=== PATIENT | male | born 1950 | race Caucasian/White ===

== ENCOUNTER 2020-11-05 09:27 | Outpatient (CLI) | payer MEDICARE, OTHER | END 2020-11-05 23:59 | disposition home or self-care (01) | LOC: WOUND 09:27 | PROVIDERS: ATTEND Nurse Practitioner Family | DX: S91.105A Unspecified open wound of left lesser toe(s) without damage to nail, initial encounter (principal); L03.032 Cellulitis of left toe; L98.496 Non-pressure chronic ulcer of skin of other sites with bone involvement without evidence of necrosis; M86.572 Other chronic hematogenous osteomyelitis, left ankle and foot; L84 Corns and callosities; E03.9 Hypothyroidism, unspecified; M10.9 Gout, unspecified; X58.XXXA Exposure to other specified factors, initial encounter; Y93.89 Activity, other specified; Y92.89 Other specified places as the place of occurrence of the external cause; Y99.8 Other external cause status | CPT/HCPCS: 87070; 87077; 87186; 87205; 97597; G0463 ==

== ENCOUNTER 2020-11-08 12:19 | Outpatient (CLI) | payer MEDICARE, OTHER ==
[2020-11-08] MEDS ORDERED: GADOTERATE 10 MMOL/20ML SYR ONE (13:58)
== END 2020-11-08 23:59 | disposition home or self-care (01) ==
LOC: RAD 12:19
PROVIDERS: ATTEND Nurse Practitioner Family
DX: S92.322A Displaced fracture of second metatarsal bone, left foot, initial encounter for closed fracture (principal); L03.012 Cellulitis of left finger; L97.814 Non-pressure chronic ulcer of other part of right lower leg with necrosis of bone; X58.XXXA Exposure to other specified factors, initial encounter; Y93.89 Activity, other specified; Y92.89 Other specified places as the place of occurrence of the external cause; Y99.8 Other external cause status
CPT/HCPCS: 73720; A9575

== ENCOUNTER → 2020-11-12 | Outpatient (CLI) | payer MEDICARE, OTHER | END | disposition home or self-care (01) | LOC: WOUND 09:49 | PROVIDERS: ATTEND Nurse Practitioner Family | DX: S91.105D Unspecified open wound of left lesser toe(s) without damage to nail, subsequent encounter (principal); L03.032 Cellulitis of left toe; L98.496 Non-pressure chronic ulcer of skin of other sites with bone involvement without evidence of necrosis; M86.572 Other chronic hematogenous osteomyelitis, left ankle and foot; L84 Corns and callosities; E03.9 Hypothyroidism, unspecified; M10.9 Gout, unspecified; X58.XXXD Exposure to other specified factors, subsequent encounter | CPT/HCPCS: 97597 ==

== ENCOUNTER 2020-11-19 09:12 | Outpatient (CLI) | payer MEDICARE, OTHER | END 2020-11-19 23:59 | disposition home or self-care (01) | LOC: WOUND 09:12 | PROVIDERS: ATTEND Nurse Practitioner Family | DX: S91.105D Unspecified open wound of left lesser toe(s) without damage to nail, subsequent encounter (principal); L98.496 Non-pressure chronic ulcer of skin of other sites with bone involvement without evidence of necrosis; L03.032 Cellulitis of left toe; M86.572 Other chronic hematogenous osteomyelitis, left ankle and foot; L84 Corns and callosities; E03.9 Hypothyroidism, unspecified; M10.9 Gout, unspecified; X58.XXXD Exposure to other specified factors, subsequent encounter | CPT/HCPCS: G0463 ==

== ENCOUNTER → 2020-11-26 | Outpatient (CLI) | payer MEDICARE, OTHER | END | disposition home or self-care (01) | LOC: WOUND 08:48 | PROVIDERS: ATTEND Nurse Practitioner Family | DX: S91.105D Unspecified open wound of left lesser toe(s) without damage to nail, subsequent encounter (principal); L03.032 Cellulitis of left toe; L98.496 Non-pressure chronic ulcer of skin of other sites with bone involvement without evidence of necrosis; M86.572 Other chronic hematogenous osteomyelitis, left ankle and foot; L84 Corns and callosities; E03.9 Hypothyroidism, unspecified; M10.9 Gout, unspecified; X58.XXXD Exposure to other specified factors, subsequent encounter | CPT/HCPCS: G0463 ==

== ENCOUNTER → 2020-12-03 | Outpatient (CLI) | payer MEDICARE, OTHER | END | disposition home or self-care (01) | LOC: WOUND 08:35 | PROVIDERS: ATTEND Nurse Practitioner Family | DX: S91.105D Unspecified open wound of left lesser toe(s) without damage to nail, subsequent encounter (principal); L98.496 Non-pressure chronic ulcer of skin of other sites with bone involvement without evidence of necrosis; L03.032 Cellulitis of left toe; M86.572 Other chronic hematogenous osteomyelitis, left ankle and foot; L84 Corns and callosities; E03.9 Hypothyroidism, unspecified; M10.9 Gout, unspecified; X58.XXXD Exposure to other specified factors, subsequent encounter | CPT/HCPCS: 97597 ==

== ENCOUNTER → 2020-12-05 | Outpatient (CLI) | payer MEDICARE, OTHER | END | disposition home or self-care (01) | LOC: CVU 12:32 | PROVIDERS: ATTEND Nurse Practitioner Family | DX: L97.814 Non-pressure chronic ulcer of other part of right lower leg with necrosis of bone (principal); L98.496 Non-pressure chronic ulcer of skin of other sites with bone involvement without evidence of necrosis | CPT/HCPCS: 93922 ==

== ENCOUNTER 2020-12-17 09:10 | Outpatient (CLI) | payer MEDICARE, OTHER | END 2020-12-17 23:59 | disposition home or self-care (01) | LOC: WOUND 09:10 | PROVIDERS: ATTEND Nurse Practitioner Family | DX: S91.105D Unspecified open wound of left lesser toe(s) without damage to nail, subsequent encounter (principal); L98.496 Non-pressure chronic ulcer of skin of other sites with bone involvement without evidence of necrosis; L03.032 Cellulitis of left toe; M86.572 Other chronic hematogenous osteomyelitis, left ankle and foot; L84 Corns and callosities; E03.9 Hypothyroidism, unspecified; M10.9 Gout, unspecified; X58.XXXD Exposure to other specified factors, subsequent encounter | CPT/HCPCS: 97597 ==

== ENCOUNTER 2020-12-31 09:15 | Outpatient (CLI) | payer MEDICARE, OTHER | END 2020-12-31 23:59 | disposition home or self-care (01) | LOC: WOUND 09:15 | PROVIDERS: ATTEND Nurse Practitioner Family | DX: S91.105D Unspecified open wound of left lesser toe(s) without damage to nail, subsequent encounter (principal); L98.496 Non-pressure chronic ulcer of skin of other sites with bone involvement without evidence of necrosis; L03.032 Cellulitis of left toe; M86.572 Other chronic hematogenous osteomyelitis, left ankle and foot; L84 Corns and callosities; E03.9 Hypothyroidism, unspecified; D69.41 Evans syndrome; M10.9 Gout, unspecified; X58.XXXD Exposure to other specified factors, subsequent encounter | CPT/HCPCS: 97597 ==